=== PATIENT | female | born 1950 | race Caucasian/White ===

== ENCOUNTER → 2016-10-17 | Outpatient (CLI) | payer MEDICARE, OTHER ==
[~2016-10-17] MED LIST: ARIMIDEX1 MG PO; ASPIRIN 32325 MG/TAB PO; ASPIRIN 81M81 MG/TA2 PO; B COMPLEX #11 TA1 PO; CALCIUM 600600 M2 PO; CEPHALEXIN500 M1 PO; DEMEROL 50M50 MG/TAB PO; EPA FISH OIL1 SGL PO; GLUCOPHAGE1000 MG PO; GLUCOPHAGE500 MG/TAB PO; HCTZ12.5TAB PO; IBU400 MG PO; L-GLUTAMINE500 M5 PO; MOBIC15 MG PO; MULTI VITAMINS1 TAB PO; NATURAL IRON65 MG PO; NEURONTIN100 MG/CAP PO; OSCAL 500 TAB500 MG PO; OSTEO-BI-FLEX 21 TAB PO; OYSCO 500500 M1 PO; SYNTHROID 0.0.025 MG PO; TYLENOL PM EXTR1 TA1 PO; ZESTRIL 10MG10 MG PO; ZETIA 10MG TAB10 MG PO
== END ==
LOC: COL.RAD 10:21
DX: K21.9 Gastro-esophageal reflux disease without esophagitis (principal); K44.9 Diaphragmatic hernia without obstruction or gangrene; K22.5 Diverticulum of esophagus, acquired

== ENCOUNTER 2016-10-25 08:50 | Inpatient (IN) | payer MEDICARE, OTHER ==
[~2016-10-25] VITALS: Ht 160 cm; Wt 76.4 kg
[~2016-10-25 08:50] MED LIST changes: -ARIMIDEX1 MG PO; -ASPIRIN 32325 MG/TAB PO; -B COMPLEX #11 TA1 PO; -L-GLUTAMINE500 M5 PO; -NATURAL IRON65 MG PO; -NEURONTIN100 MG/CAP PO; -OSCAL 500 TAB500 MG PO
[2016-10-30] VITALS (10 sets, daily range): BP systolic 107–126; BP diastolic 50–63; PULSE 87–101; TEMP 98.2
[2016-10-30 13:07] LABS: HEMATOCRIT 29.3 % (37.0-47.0); HEMOGLOBIN 8.6 g/dl (12.5-16.0)
[2016-10-30] MEDS ORDERED: OSCAL 500 TAB500 MG PO (13:51)
[2016-10-30] MEDS ORDERED: ASPIRIN 32325 MG/TAB PO (13:55)
[2016-10-30] MEDS ORDERED: NEURONTIN100 MG/CAP PO ×2 (13:56)
[2016-10-30] MEDS ORDERED: B COMPLEX #11 TA1 PO (13:57)
[2016-10-30] MEDS ORDERED: ARIMIDEX1 MG PO (13:58)
[2016-10-30] MEDS ORDERED: L-GLUTAMINE500 M5 PO (14:00)
[2016-10-30] MEDS ORDERED: NATURAL IRON65 MG PO (14:01)
[2016-10-31] VITALS (11 sets, daily range): BP systolic 90–123; BP diastolic 46–67; PULSE 79–102; TEMP 97.3–98.6
[2016-10-31 06:21] LABS: HEMATOCRIT 23.1 % (37.0-47.0); HEMOGLOBIN 6.8 g/dl (12.5-16.0)
[2016-10-31 06:27] LABS: CALCIUM 9.3 mg/dL (8.4-10.2); CREATININE, serum 0.81 mg/dL (0.52-1.25)
[2016-10-31 15:12] LABS: HEMATOCRIT 30.2 % (37.0-47.0); HEMOGLOBIN 9.5 g/dl (12.5-16.0)
== END 2016-10-31 18:56 | disposition home or self-care (01) | DRG 328 ==
LOC: SURG 10-30 12:00 → SDCO 10-30 12:00 → EDSTATUS 10-30 12:00 → SURG 10-30 12:09 → INPTSU 10-30 12:09 → SDCO 10-30 12:30 → SURG 10-30 16:03
PROVIDERS: Surgery
PROC: 0DV44ZZ Restriction of Esophagogastric Junction, Percutaneous Endoscopic Approach (ICD-10-PCS; 2016-10-30)
PROC: 8E0W4CZ Robotic Assisted Procedure of Trunk Region, Percutaneous Endoscopic Approach (ICD-10-PCS; 2016-10-30)
PROC: 0BUS4JZ (ICD-10-PCS; principal; 2016-10-30 14:30)
DX: K44.9 Diaphragmatic hernia without obstruction or gangrene (principal); K21.9 Gastro-esophageal reflux disease without esophagitis; I10 Essential (primary) hypertension; E11.9 Type 2 diabetes mellitus without complications; Z85.3 Personal history of malignant neoplasm of breast
CPT/HCPCS: A9284; C1713; C1781; J0330; J0690; J1100; J1885; J1940; J2250; J2405; J2704; J2710; J2765; J3010; J7030; P9016

== ENCOUNTER → 2016-10-25 | Outpatient (CLI) | payer MEDICARE, OTHER ==
[2016-10-25 15:34] LABS: MEAN CELL VOLUME 77 fl (80.0-100.0); MEAN CORPUSCULAR HGB CONC 30 g/dl (33.0-37.0); MEAN PLATELET VOLUME 8.9 fl (7.4-10.4); PLATELET COUNT 420 K/mm3 (130-400); RED BLOOD COUNT 3.64 M/mm3 (4.10-5.30); REDCELL DISTRIBUTION WIDTH-CV 17.5 % (11.5-14.5); WHITE BLOOD COUNT 8.6 K/mm3 (4.8-10.8)
[2016-10-25 15:41] LABS: HEMATOCRIT 28.1 % (37.0-47.0); HEMOGLOBIN 8.3 g/dl (12.5-16.0); MEAN CORPUSCULAR HEMOGLOBIN 23 pg (27.0-31.0)
== END ==
LOC: COL.CARD 14:10
PROVIDERS: Surgery
DX: Z01.818 Encounter for other preprocedural examination (principal)

== ENCOUNTER 2016-12-21 14:27 | Inpatient (IN) | payer MEDICARE, OTHER ==
[~2016-12-21] VITALS: Ht 160 cm; Wt 79.4 kg
[~2016-12-21 14:27] MED LIST changes: +ARIMIDEX1 MG PO; +ASPIRIN 32325 MG/TAB PO; +B COMPLEX #11 TA1 PO; +L-GLUTAMINE500 M5 PO; +NATURAL IRON65 MG PO; +NEURONTIN100 MG/CAP PO; +OSCAL 500 TAB500 MG PO
[2016-12-21 15:53] LABS: BASO % 0.3 % (0.0-2.0); EOS # 0.3 (0.0-0.7); GRAN # 4.1 (1.4-6.5); GRAN % 51.9 % (42.2-75.2); LYMPH # 2.8 (1.2-3.4); LYMPH % 35.2 % (20.0-51.0); MEAN CELL VOLUME 86 fl (80.0-100.0); MEAN CORPUSCULAR HGB CONC 32 g/dl (33.0-37.0); MEAN PLATELET VOLUME 9.6 fl (7.4-10.4); MONO # 0.7 (0.1-0.6); MONO % 8.3 % (1.7-9.3); PLATELET COUNT 283 K/mm3 (130-400); RED BLOOD COUNT 4.15 M/mm3 (4.10-5.30); REDCELL DISTRIBUTION WIDTH-CV 21.8 % (11.5-14.5); WHITE BLOOD COUNT 7.8 K/mm3 (4.8-10.8)
[2016-12-21 15:54] LABS: HEMATOCRIT 35.6 % (37.0-47.0); HEMOGLOBIN 11.5 g/dl (12.5-16.0); MEAN CORPUSCULAR HEMOGLOBIN 28 pg (27.0-31.0)
[2016-12-21 16:03] LABS: CALCIUM 9.5 mg/dL (8.4-10.2); CREATININE, serum 0.76 mg/dL (0.52-1.25); POTASSIUM 4.1 mmol/L (3.4-5.0)
[2016-12-21 17:20] VITALS: BP 127/56; PULSE 71; TEMP 98.5
[2016-12-21 17:56] LABS: PROTHROMBIN TIME 11.3 SECONDS (9.7-12.8)
[2016-12-21 18:22] LABS: ADJUSTED CALCIUM 9.4 mg/dL (8.4-10.2); ALBUMIN 4.1 gm/dL (3.5-5.0); BILIRUBIN,TOTAL 0.3 mg/dL (0.0-1.0)
[2016-12-21 18:45] LABS: PH 6 (5-8); SQUAMOUS EPITHELIAL None Seen /hpf; URINE APPEARANCE Hazy; URINE BACTERIA None Seen /hpf; URINE BILIRUBIN Negative (NEGATIVE); URINE BLOOD Negative (NEGATIVE); URINE COLOR Yellow; URINE GLUCOSE Negative (NEGATIVE); URINE KETONE Negative (NEGATIVE); URINE RBC 0-2 /hpf; URINE UROBILINOGEN Negative (NEGATIVE)
[2016-12-21 19:00] VITALS: BP 117/55; PULSE 74; TEMP 98
[2016-12-21 19:40] VITALS: BP 117/55; PULSE 74; TEMP 98
[2016-12-22 02:42] VITALS: BP 106/49; PULSE 63; TEMP 97.4
[2016-12-22 06:25] VITALS: BP 102/62; PULSE 81; TEMP 98.8
[2016-12-22 10:08] VITALS: BP 122/53; PULSE 73; TEMP 98.4
[2016-12-22 13:25] VITALS: BP 118/60; PULSE 75; TEMP 97.7
[2016-12-22 16:34] VITALS: BP 126/56; PULSE 78; TEMP 98.9
[2016-12-22 22:22] VITALS: BP 115/55; PULSE 73; TEMP 98.4
[2016-12-23] VITALS (11 sets, daily range): BP systolic 99–134; BP diastolic 46–69; PULSE 63–80; TEMP 97.5–99.2
[2016-12-24] VITALS (7 sets, daily range): BP systolic 92–1115; BP diastolic 42–65; PULSE 56–82; TEMP 97.6–98.6
[2016-12-24 07:43] LABS: BASO % 0.1 % (0.0-2.0); GRAN # 7.5 (1.4-6.5); LYMPH # 1.2 (1.2-3.4); LYMPH % 12.9 % (20.0-51.0); MEAN CELL VOLUME 87 fl (80.0-100.0); MEAN CORPUSCULAR HGB CONC 32 g/dl (33.0-37.0); MEAN PLATELET VOLUME 10.1 fl (7.4-10.4); MONO # 0.3 (0.1-0.6); MONO % 3.8 % (1.7-9.3); PLATELET COUNT 249 K/mm3 (130-400); RED BLOOD COUNT 3.67 M/mm3 (4.10-5.30); REDCELL DISTRIBUTION WIDTH-CV 21.2 % (11.5-14.5)
[2016-12-24 07:44] LABS: HEMATOCRIT 31.9 % (37.0-47.0); HEMOGLOBIN 10.2 g/dl (12.5-16.0); MEAN CORPUSCULAR HEMOGLOBIN 28 pg (27.0-31.0)
[2016-12-24 07:55] LABS: CALCIUM 8.9 mg/dL (8.4-10.2); CREATININE, serum 0.66 mg/dL (0.52-1.25); POTASSIUM 4.3 mmol/L (3.4-5.0)
[2016-12-25] VITALS (7 sets, daily range): BP systolic 105–123; BP diastolic 44–58; PULSE 81–103; TEMP 98.1–99.3
[2016-12-26 05:03] VITALS: BP 118/53; PULSE 80; TEMP 98.1
[2016-12-26 10:25] VITALS: BP 123/55; PULSE 105; TEMP 98.4
[2016-12-26 14:23] VITALS: BP 119/48; PULSE 84; TEMP 98.2
[2016-12-26] MEDS ORDERED: CEPHALEXIN500 M1 PO (14:40)
[2016-12-26] MEDS ORDERED: FLEXERIL 1010 MG/TAB PO (14:40)
== END 2016-12-26 16:45 | disposition home or self-care (01) | DRG 481 ==
LOC: COL.ER 14:27 → SURG 16:41
PROVIDERS: Emergency Medicine; Family Medicine; Nurse Practitioner Family; Orthopaedic Surgery
PROC: 0QS604Z Reposition Right Upper Femur with Internal Fixation Device, Open Approach (ICD-10-PCS; principal; 2016-12-23 17:00)
DX: S72.111A Displaced fracture of greater trochanter of right femur, initial encounter for closed fracture (principal); M97.01XA Periprosthetic fracture around internal prosthetic right hip joint, initial encounter; N39.0 Urinary tract infection, site not specified; W01.0XXA Fall on same level from slipping, tripping and stumbling without subsequent striking against object, initial encounter; I10 Essential (primary) hypertension; E11.9 Type 2 diabetes mellitus without complications; Z85.3 Personal history of malignant neoplasm of breast; B96.20 Unspecified Escherichia coli [E. coli] as the cause of diseases classified elsewhere
CPT/HCPCS: 99222-AI; 99232-AI; 99233-AI; 99238; A9284; J0690; J0696; J1100; J1644; J1650; J2175; J2250; J2370; J2405; J2704; J3010; J7030; J7042; J7050; J7120

== ENCOUNTER → 2018-10-26 | Outpatient (CLI) | payer MEDICARE, OTHER ==
[~2018-10-26] MED LIST changes: +ASPIRIN E.C. 8181 MG PO; +EFFIENT5 MG PO; +FLEXERIL 1010 MG/TAB PO; +FLONASE NASAL S16 GM NS; +MOBIC 7.5MG7.5 MG PO; +PROTONIX 40MG T40 MG PO; +TESSALON P100 MG/CAP PO; +ZITHROMAX 250M250 MG PO
== END ==
LOC: COL.VAS 13:36
DX: Z01.810 Encounter for preprocedural cardiovascular examination (principal); I35.8 Other nonrheumatic aortic valve disorders; R00.0 Tachycardia, unspecified

== ENCOUNTER → 2018-11-02 | Outpatient (CLI) | payer MEDICARE, OTHER ==
[2018-11-02 08:44] LABS: MUCOUS Present /lpf; PH 5 (5-8); URINE APPEARANCE Hazy; URINE BACTERIA None Seen /hpf; URINE BILIRUBIN Negative (NEGATIVE); URINE BLOOD Negative (NEGATIVE); URINE COLOR Yellow; URINE GLUCOSE Negative (NEGATIVE); URINE KETONE Trace (NEGATIVE); URINE LEUKOCYTE ESTERASE 2+ (NEGATIVE); URINE NITRATE Negative (NEGATIVE); URINE PROTEIN(semi-quant) Negative (NEGATIVE); URINE UROBILINOGEN Negative (NEGATIVE); URINE WBC >50 /hpf
[2018-11-02 09:03] LABS: COLLECTION METHOD CLEAN CATCH
[2018-11-02 09:08] LABS: INR 0.9 (0.8-3.0); PROTHROMBIN TIME 10.4 SECONDS (9.7-12.8)
== END ==
LOC: COL.LAB 07:57
PROVIDERS: Orthopaedic Surgery
DX: Z01.812 Encounter for preprocedural laboratory examination (principal)

== ENCOUNTER → 2020-05-01 | Outpatient (CLI) | payer MEDICARE, OTHER | LOC: COL.RAD 10:33 | DX: Z01.812 Encounter for preprocedural laboratory examination (principal); I72.0 Aneurysm of carotid artery | CPT/HCPCS: Q9967 ==

== ENCOUNTER 2020-09-20 10:14 | Emergency (ER) | payer MEDICARE, OTHER ==
[~2020-09-20] VITALS: Ht 162.6 cm; Wt 75.0 kg
[~2020-09-20 10:14] MED LIST changes: +DUO-KAPS1 CAP PO; -MOBIC 7.5MG7.5 MG PO; -MULTI VITAMINS1 TAB PO
[2020-09-20 10:19] VITALS: TEMP 97.7
[2020-09-20 11:08] LABS: BASO % 0.1 % (0.0-2.0); EOS % 0.2 % (0-4.0); GRAN # 4.8 (1.4-6.5); GRAN % 56.8 % (42.2-75.2); HEMOGLOBIN 10.6 g/dl (12.5-16.0); LYMPH # 3.2 (1.2-3.4); LYMPH % 37.6 % (20.0-51.0); MEAN CELL VOLUME 86 fl (80.0-100.0); MEAN CORPUSCULAR HEMOGLOBIN 27 pg (27.0-31.0); MEAN CORPUSCULAR HGB CONC 31 g/dl (33.0-37.0); MEAN PLATELET VOLUME 9.1 fl (7.4-10.4); MONO # 0.4 (0.1-0.6); MONO % 5.1 % (1.7-9.3); PLATELET COUNT 382 K/mm3 (130-400); RED BLOOD COUNT 3.96 M/mm3 (4.10-5.30)
[2020-09-20 11:12] LABS: HEMATOCRIT 33.9 % (37.0-47.0)
[2020-09-20 11:16] LABS: ALANINE AMINOTRANSFERASE 19 U/L (4-34); ALBUMIN 4.7 gm/dL (3.5-5.0); ALKALINE PHOSPHATASE 75 U/L (50-136); ANION GAP 12 mmol/L (7-16); AST,SGOT 30 U/L (15-37); BILIRUBIN,TOTAL 0.5 mg/dL (0.0-1.0); BLOOD UREA NITROGEN 8 mg/dL (7-17); CALCIUM 9.1 mg/dL (8.4-10.2); CARBON DIOXIDE 19 mmol/L (22-30); CHLORIDE 105 mmol/L (98-107); CREATININE, serum 0.58 (0.52-1.25); GLUCOSE 150 mg/dL (74-106); LIPASE 127 U/L (23-300); POTASSIUM 3.7 mmol/L (3.4-5.0); SODIUM 136 mmol/L (137-145); TOTAL PROTEIN 7.8 gm/dL (6.4-8.2)
[2020-09-20 11:18] LABS: C-REACTIVE PROTEIN < 0.5 mg/dL (0.0-0.9)
[2020-09-20 11:25] LABS: COLLECTION METHOD CLEAN CATCH
[2020-09-20 11:35] LABS: PH 6 (5-8); SQUAMOUS EPITHELIAL None Seen /hpf; URINE APPEARANCE Cloudy; URINE BACTERIA Many /hpf; URINE BILIRUBIN Negative (NEGATIVE); URINE BLOOD Negative (NEGATIVE); URINE COLOR Yellow; URINE GLUCOSE Negative (NEGATIVE); URINE KETONE 2+ (NEGATIVE); URINE LEUKOCYTE ESTERASE 3+ (NEGATIVE); URINE NITRATE Positive (NEGATIVE); URINE PROTEIN(semi-quant) Negative (NEGATIVE); URINE UROBILINOGEN Negative (NEGATIVE)
[2020-09-20 12:40] LABS: HEMATOCRIT 31.5 % (37.0-47.0); HEMOGLOBIN 9.7 g/dl (12.5-16.0)
[2020-09-20 12:45] VITALS: BP 119/54; PULSE 81
[2020-09-20] MEDS ORDERED: OMNICEF 300MG300 MG PO (13:36)
== END 2020-09-20 13:55 | disposition home or self-care (01) ==
LOC: COL.ER 10:14
PROVIDERS: Family Medicine
DX: N39.0 Urinary tract infection, site not specified (principal); E86.0 Dehydration; Z88.2 Allergy status to sulfonamides; J44.9 Chronic obstructive pulmonary disease, unspecified; I48.91 Unspecified atrial fibrillation; Z79.2 Long term (current) use of antibiotics
CPT/HCPCS: J1644; J2405; J7030; J7120

== ENCOUNTER 2020-12-07 10:33 | Day surgery (SDC) | payer MEDICARE, OTHER ==
[2020-12-07] VITALS (9 sets, daily range): BP systolic 118–158; BP diastolic 56–87; PULSE 54–68; TEMP 98.6
[~2020-12-07] VITALS: Ht 162.7 cm; Wt 72.2 kg
[~2020-12-07 10:33] MED LIST changes: +OMNICEF 300MG300 MG PO
[2020-12-07] MEDS ORDERED: TOPROL XL 25MG25 MG PO (11:29)
[2020-12-07] MEDS ORDERED: AMOXICILLIN 50500 MG PO (11:30)
[2020-12-07] MEDS ORDERED: ARIMIDEX1 MG PO (11:30)
[2020-12-07 11:31] LABS: HEMATOCRIT 31.3 % (37.0-47.0); HEMOGLOBIN 9.9 g/dl (12.5-16.0); MEAN CELL VOLUME 86 fl (80.0-100.0); MEAN CORPUSCULAR HEMOGLOBIN 27 pg (27.0-31.0); MEAN CORPUSCULAR HGB CONC 32 g/dl (33.0-37.0); MEAN PLATELET VOLUME 9.3 fl (7.4-10.4); PLATELET COUNT 318 K/mm3 (130-400); RED BLOOD COUNT 3.65 M/mm3 (4.10-5.30); REDCELL DISTRIBUTION WIDTH-CV 17.4 % (11.5-14.5)
[2020-12-07] MEDS ORDERED: ASPIRIN 32325 MG/TAB PO (11:31)
[2020-12-07] MEDS ORDERED: TYLENOL PM EXTR1 TA1 PO (11:32)
[2020-12-07] MEDS ORDERED: EPA FISH OIL1 SGL PO (11:33)
[2020-12-07] MEDS ORDERED: PRINIVIL10 MG PO (11:35)
[2020-12-07] MEDS ORDERED: K-DUR 10 MEQ T10 MEQ PO (11:36)
[2020-12-07] MEDS ORDERED: VITAMIN B COMPL1 SGL PO (11:37)
[2020-12-07] MEDS ORDERED: MOVE FREE JOIN1 EACH PO (11:37)
[2020-12-07 11:42] LABS: ALBUMIN 3.9 gm/dL (3.5-5.0); BILIRUBIN,TOTAL 0.1 mg/dL (0.0-1.0); CREATININE, serum 0.67 (0.52-1.25); MAGNESIUM 1.6 mg/dL (1.6-2.3); POTASSIUM 4.1 mmol/L (3.4-5.0); TOTAL PROTEIN 6.5 gm/dL (6.4-8.2)
[2020-12-07 11:53] LABS: INR 1.1 (0.8-3.0); PROTHROMBIN TIME 11.9 SECONDS (9.7-12.8)
--- NOTE | 2020-12-07 14:09 | NUR ---
SEE MERGE FOR ALL MEDICATION ADMINISTRATION TIMES, INTRA AND POST SEDATION ASSESSMENTS
--- NOTE | 2020-12-07 15:15 | NUR ---
Pt drifing off to sleep with sats dropping as low as 87%. Oxygen applied at 2L/min and sats improve. Pt wakes easily to name, she states she typically takes a while to wake up following sedation. While awake sats are in mid 90s on room air.
--- NOTE | 2020-12-07 17:15 | NUR ---
report from Sukh DELGADO, released 2cc of air from TR band, pt has no c/o, uses phone, released 2cc x2, then band removed at 1730 with no bleeding or swelling, bandaid put on site. port flushed per protocol and removed with bandaid on site
--- NOTE | 2020-12-07 18:00 | NUR ---
pt up in room dressed, waits for ride, up to b/r, discharged via w/c to car with
== END 2020-12-07 18:00 | disposition home health service (06) ==
LOC: COL.CAR 10:33
PROVIDERS: Internal Medicine Cardiovascular Disease
DX: R06.02 Shortness of breath (principal); R94.39 Abnormal result of other cardiovascular function study; I10 Essential (primary) hypertension; E78.00 Pure hypercholesterolemia, unspecified; I72.0 Aneurysm of carotid artery; G62.0 Drug-induced polyneuropathy; K21.9 Gastro-esophageal reflux disease without esophagitis; E03.9 Hypothyroidism, unspecified; K58.9 Irritable bowel syndrome, unspecified; Z79.82 Long term (current) use of aspirin; Z79.899 Other long term (current) drug therapy; Z79.84 Long term (current) use of oral hypoglycemic drugs
CPT/HCPCS: C1769; J1644; J2250; J3010

== ENCOUNTER 2021-03-13 20:24 | Inpatient (IN) | payer MEDICARE, OTHER ==
[~2021-03-13] VITALS: Ht 157.5 cm; Wt 81.0 kg
[~2021-03-13 20:24] MED LIST changes: +AMOXICILLIN 50500 MG PO; +K-DUR 10 MEQ T10 MEQ PO; +MOVE FREE JOIN1 EACH PO; +PRINIVIL10 MG PO; +TOPROL XL 25MG25 MG PO; +VITAMIN B COMPL1 SGL PO
[2021-03-13 21:28] LABS: BASO % 0.2 % (0.0-2.0); EOS % 0.3 % (0-4.0); GRAN # 12.7 K/mm3 (1.4-6.5); GRAN % 83.3 % (42.2-75.2); HEMATOCRIT 34.6 % (37.0-47.0); HEMOGLOBIN 10.5 g/dl (12.5-16.0); LYMPH # 1.8 K/mm3 (1.2-3.4); LYMPH % 12.1 % (20.0-51.0); MEAN CELL VOLUME 92 fl (80.0-100.0); MEAN CORPUSCULAR HEMOGLOBIN 28 pg (27.0-31.0); MEAN CORPUSCULAR HGB CONC 30 g/dl (33.0-37.0); MEAN PLATELET VOLUME 9.6 fl (7.4-10.4); MONO # 0.5 K/mm3 (0.1-0.6); MONO % 3.6 % (1.7-9.3); PLATELET COUNT 306 K/mm3 (130-400); RED BLOOD COUNT 3.75 M/mm3 (4.10-5.30); REDCELL DISTRIBUTION WIDTH-CV 18.8 % (11.5-14.5)
[2021-03-13 21:58] LABS: ALBUMIN 4.1 gm/dL (3.4-4.8); BILIRUBIN,TOTAL 0.5 mg/dL (0.2-1.2); CALCIUM 8.9 mg/dL (8.4-10.2); CREATININE, serum 0.79 mg/dL (0.57-1.11); POTASSIUM 3.5 mmol/L (3.5-4.5); TOTAL PROTEIN 6.8 gm/dL (6.2-8.1)
[2021-03-13 23:20] LABS: COLLECTION METHOD CLEAN CATCH
[2021-03-13 23:39] LABS: MUCOUS Present (NOT PRESENT); PH 5 (5-8); SQUAMOUS EPITHELIAL 0-2 /hpf (0-10); URINE APPEARANCE Clear (CLEAR/HAZY); URINE BACTERIA None Seen (NONE SEEN); URINE BILIRUBIN Negative (NEGATIVE); URINE BLOOD Negative (NEGATIVE); URINE COLOR Yellow (YELLOW); URINE GLUCOSE Negative (NEGATIVE); URINE KETONE 1+ (NEGATIVE); URINE LEUKOCYTE ESTERASE 3+ (NEGATIVE); URINE NITRATE Negative (NEGATIVE); URINE PROTEIN(semi-quant) Negative (NEGATIVE); URINE UROBILINOGEN Negative (NEGATIVE)
[2021-03-14] VITALS (10 sets, daily range): BP systolic 78–119; BP diastolic 33–99; PULSE 57–106; TEMP 98–99.5
[2021-03-14] MEDS ORDERED: PROTONIX 40MG T40 MG PO (00:40)
[2021-03-14] MEDS ORDERED: NATURAL IRON65 MG PO (00:42)
[2021-03-14] MEDS ORDERED: VITAMIN C500 MG PO (00:43)
[2021-03-14] MEDS ORDERED: CALCIUM CARBON500 M1 PO (00:50)
--- NOTE | 2021-03-14 01:07 | NUR ---
PT ARRIVED TO ROOM VIA ER CART @ 0035. PT WAS ABLE TO MOVE SELF FROM CART TO BED WITH MINIMAL ASSISTANCE. MED REC IS COMPLETED. Juan Manuel ALEX IN ROOM ASSESSING PT @ THIS TIME.
--- NOTE | 2021-03-14 02:07 | NUR ---
IMPLANTED PORT ON PT'S RIGHT CHEST HAD BEEN ACCESSED IN ED.
--- NOTE | 2021-03-14 03:11 | NUR ---
PT REPORTS RETURNING PAIN IN HER RIGHT ABDOMEN. PT STATES THAT SHE REALLY FEELS LIKE SHE NEEDS TO URINATE BUT CANNOT GO. [facility] IS IN PLACE. PT DENIES OTHER NEEDS, IS PLEASANT ET TALKATIVE. RESPIRATIONS UNLABORED ON RA. IVF INFUSING THROUGH PORTACATH. CALL LIGHT WITHIN REACH.
--- NOTE | 2021-03-14 04:35 | NUR ---
PCT INGRID NOTIFIES THIS NURSE OF PT'S LOW BLOOD PRESSURES. PT'S BP IN RIGHT UPPER ARM IS 79/38 WHEN RE-TAKEN BY THIS NURSE. PT IS ASYMPTOMATIC, DENIES DIZZINESS OR PAIN @ THIS TIME. PT IS SITTING UP IN BED ET TALKATIVE. Juan Manuel ALEX NOTIFIED. NEW ORDERS RECEIVED TO GIVE FLUID BOLUS ET THEN TO RE-CHECK BP. IVF INFUSING.
--- NOTE | 2021-03-14 05:59 | NUR ---
Juan Manuel ALEX NOTIFIED OF PT'S CONDITION ET BLOOD PRESSURE. PT APPEARS PALE ET IS DROWSY, CONTINUES TO DENY SYMPTOMS. IVF INFUSING. Juan Manuel ALEX TALKS TO PT ABOUT DECISION TO TRANSFER TO ICU, PT IS AGREEABLE. REPORT GIVEN TO JARAD DELGADO.
--- NOTE | 2021-03-14 06:25 | NUR ---
Arrived to ICU 4 at this. Assessment complete and charted.
--- NOTE | 2021-03-14 07:00 | NUR ---
PT IS AXOX4. PT STARTED ON LEVO. WILL CONTINUE TO MONITOR.
[2021-03-14 07:03] LABS: MEAN CELL VOLUME 92 fl (80.0-100.0); MEAN CORPUSCULAR HGB CONC 31 g/dl (33.0-37.0); MEAN PLATELET VOLUME 10.3 fl (7.4-10.4); PLATELET COUNT 223 K/mm3 (130-400); RED BLOOD COUNT 3.08 M/mm3 (4.10-5.30); REDCELL DISTRIBUTION WIDTH-CV 19.4 % (11.5-14.5)
[2021-03-14 07:16] LABS: CALCIUM 8.3 mg/dL (8.4-10.2); CREATININE, serum 1.03 mg/dL (0.57-1.11); POTASSIUM 3.6 mmol/L (3.5-4.5)
--- NOTE | 2021-03-14 07:18 | NUR ---
Report given to Tomeka DELGADO
[2021-03-14 07:27] LABS: HEMATOCRIT 28.3 % (37.0-47.0); HEMOGLOBIN 8.7 g/dl (12.5-16.0); MEAN CORPUSCULAR HEMOGLOBIN 28 pg (27.0-31.0)
[2021-03-14 08:26] LABS: ANISOCYTOSIS 2+; BAND 14 % (0-10); HYPOCHROMIA 2+; LYMPHOCYTE 4 % (20.0-51.0); NEUTROPHILS 78 % (42.0-75.2); PLATELET ESTIMATE NORMAL (NORMAL)
--- NOTE | 2021-03-14 09:00 | NUR ---
PT TAKEN TO OR FOR CYSTOSCOPY. NS AND LEVO RUNNING. ANESTHESIA BEDSIDE
--- NOTE | 2021-03-14 10:24 | NUR ---
Pt's med review shows use of ARIMIDEX daily. This chemotherapy drug requires use of DOUBLE GLOVES AND GOWN IS RISK OF SPLASHING WHEN HAVING CONTACT WITH [facility] FOR 10 DAYS POST EACH ADMINISTRATION.
--- NOTE | 2021-03-14 19:50 | NUR ---
Assessment complete and charted. Patient denies pain at this time. Denies needs. Gilbert in place. Levophed infusing. IV fluids decreased per orders. Call light in reach.
--- NOTE | 2021-03-14 20:06 | NUR ---
fruit i farmworker met with patient and spouse to discuss discharge planning. 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 Patient states she is independent with activities of daily living and plans to return home upon discharge. Patient states she has a ramp and all needed durable medical equipment at home.
[2021-03-15] VITALS (160 sets, daily range): BP systolic 90–130; BP diastolic 42–61; PULSE 57–84; TEMP 97.5–99; O2SAT 79–98
[2021-03-15 04:44] LABS: BASO % 0.2 % (0.0-2.0); EOS # 0.1 K/mm3 (0.0-0.7); EOS % 0.3 % (0-4.0); GRAN # 14.3 K/mm3 (1.4-6.5); GRAN % 79.8 % (42.2-75.2); LYMPH # 2.4 K/mm3 (1.2-3.4); LYMPH % 13.2 % (20.0-51.0); MEAN CELL VOLUME 93 fl (80.0-100.0); MEAN CORPUSCULAR HGB CONC 30 g/dl (33.0-37.0); MEAN PLATELET VOLUME 9.9 fl (7.4-10.4); MONO % 5.5 % (1.7-9.3); PLATELET COUNT 225 K/mm3 (130-400); RED BLOOD COUNT 3.21 M/mm3 (4.10-5.30); REDCELL DISTRIBUTION WIDTH-CV 19.9 % (11.5-14.5)
[2021-03-15 04:56] LABS: HEMATOCRIT 29.9 % (37.0-47.0); HEMOGLOBIN 9.1 g/dl (12.5-16.0); MEAN CORPUSCULAR HEMOGLOBIN 28 pg (27.0-31.0)
[2021-03-15 04:57] LABS: ALBUMIN 2.8 gm/dL (3.4-4.8); CALCIUM 7.4 mg/dL (8.4-10.2); CREATININE, serum 0.75 mg/dL (0.57-1.11); MAGNESIUM 1.5 mg/dL (1.6-2.6); PHOSPHOROUS 2.1 mg/dL (2.3-4.7); POTASSIUM 3.8 mmol/L (3.5-4.5)
--- NOTE | 2021-03-15 06:13 | NUR ---
Patient remained on levophed throughout the night. Took tylenol and toradol for pain control in ABD/ribs. Otherwise uneventful night. Resting in bed this AM. Call light in reach.
--- NOTE | 2021-03-15 07:00 | NUR ---
PT RESTING IN BED. VSS. WILL CONITNUE TO [facility].
--- NOTE | 2021-03-15 07:03 | NUR ---
Report given to DANNY Eckert
--- NOTE | 2021-03-15 12:12 | NUR ---
CALLED REGARDING CONSULT AND UPDATED ON PATIENT.
--- NOTE | 2021-03-15 19:56 | NUR ---
Report given to DANNY Ferreira
--- NOTE | 2021-03-15 20:22 | NUR ---
Patient transferred to [facility]
[2021-03-16] VITALS (7 sets, daily range): BP systolic 102–131; BP diastolic 46–53; PULSE 63–79; TEMP 97.9–98.7
--- NOTE | 2021-03-16 06:24 | NUR ---
PT RESTING QUIETLY IN BED, STATES THAT SHE HAS ONLY DOZED ON ET OFF BUT NOT SLEPT MUCH. DENIES PAIN @ THIS TIME. PT HAD HEADACHE EARLIER IN NIGHT THAT SHE STATED SHE BELIEVED WAS CAUSED BY SINUSES, EXACERBATED BY LIGHTS. PT HAS STOOD @ BEDSIDE MULTIPLE TIMES. ISLAS CATHETER DRAINING YELLOW CLOUDY URINE. PERIPHERAL IV IN PT'S RIGHT FOREARM APPEARS BRUISED ET RED @ SITE. IV REMOVED, CATHETER TIP INTACT. PT IS TALKITIVE, PLEASANT ET COOPERATIVE. IVF INFUSING THROUGH PORTACATH. PORTACATH FLUSHES EASILY WITH GOOD BLOOD RETURN. RESPIRATIONS UNLABORED. CALL LIGHT WITHIN REACH.
[2021-03-16 06:46] LABS: BASO % 0.1 % (0.0-2.0); EOS # 0.1 K/mm3 (0.0-0.7); EOS % 1.6 % (0-4.0); GRAN # 6.7 K/mm3 (1.4-6.5); GRAN % 74.5 % (42.2-75.2); LYMPH # 1.6 K/mm3 (1.2-3.4); LYMPH % 17.9 % (20.0-51.0); MEAN CELL VOLUME 93 fl (80.0-100.0); MEAN CORPUSCULAR HGB CONC 30 g/dl (33.0-37.0); MEAN PLATELET VOLUME 10.8 fl (7.4-10.4); MONO # 0.5 K/mm3 (0.1-0.6); MONO % 5.6 % (1.7-9.3); PLATELET COUNT 201 K/mm3 (130-400); RED BLOOD COUNT 2.98 M/mm3 (4.10-5.30); REDCELL DISTRIBUTION WIDTH-CV 20.5 % (11.5-14.5)
[2021-03-16 06:50] LABS: HEMATOCRIT 27.6 % (37.0-47.0); HEMOGLOBIN 8.4 g/dl (12.5-16.0); MEAN CORPUSCULAR HEMOGLOBIN 28 pg (27.0-31.0)
[2021-03-16 07:11] LABS: ALBUMIN 2.6 gm/dL (3.4-4.8); CALCIUM 7.6 mg/dL (8.4-10.2); CREATININE, serum 0.66 mg/dL (0.57-1.11); MAGNESIUM 1.8 mg/dL (1.6-2.6); PHOSPHOROUS 1.7 mg/dL (2.3-4.7); POTASSIUM 3.8 mmol/L (3.5-4.5)
--- NOTE | 2021-03-16 11:36 | NUR ---
Pt continues to do well. She has been up and showered. Dr Umana has been in and pt is hopeful to get to go home tomorrow morning. Some pain complaints, but reports it is tolerable. Pt is steady with stand by assist, Dr Umana okayed independent ambulation. No needs verbalized, call light within reach
[2021-03-16] MEDS ORDERED: TYLENOL 500MG500 MG PO (16:05)
[2021-03-16] MEDS ORDERED: MACRODANTIN100 PO (16:07)
--- NOTE | 2021-03-16 18:00 | NUR ---
Pt continues to do well, no real pain complaints, only states her side is tender. She continues to get up and walk in the halls independently. Voiding with no issues. Currently sitting up in the chair.
[2021-03-17 03:25] VITALS: BP 125/58; PULSE 77; TEMP 98.3
[2021-03-17 06:45] VITALS: BP 127/54; PULSE 54; TEMP 98.4
[2021-03-17 06:53] LABS: BASO % 0.2 % (0.0-2.0); EOS # 0.2 K/mm3 (0.0-0.7); EOS % 3.2 % (0-4.0); GRAN # 3.2 K/mm3 (1.4-6.5); GRAN % 52.9 % (42.2-75.2); LYMPH # 2.1 K/mm3 (1.2-3.4); LYMPH % 34.4 % (20.0-51.0); MEAN CELL VOLUME 90 fl (80.0-100.0); MEAN CORPUSCULAR HGB CONC 31 g/dl (33.0-37.0); MEAN PLATELET VOLUME 10.9 fl (7.4-10.4); MONO # 0.5 K/mm3 (0.1-0.6); PLATELET COUNT 215 K/mm3 (130-400); RED BLOOD COUNT 2.94 M/mm3 (4.10-5.30)
[2021-03-17 06:56] LABS: HEMATOCRIT 26.3 % (37.0-47.0); HEMOGLOBIN 8.2 g/dl (12.5-16.0); MEAN CORPUSCULAR HEMOGLOBIN 28 pg (27.0-31.0)
--- NOTE | 2021-03-17 07:07 | NUR ---
PT REPORTS BEST NIGHT OF SLEEP SO FAR, HOPING TO GO HOME TODAY. AM LAB DRAWN PER KERRI, PAIN TOLERABLE WITH TYLENOL. UP AD KEMAL
--- NOTE | 2021-03-17 07:20 | NUR ---
Pt. progressing w/ plan of care. This RN introduced self to patient and let her know this nurse would be caring for her today. Call light and belongings in reach.
[2021-03-17 08:11] VITALS: BP 128/55; PULSE 67; TEMP 97.6
[2021-03-17 08:50] LABS: ALBUMIN 2.7 gm/dL (3.4-4.8); CREATININE, serum 0.66 mg/dL (0.57-1.11); MAGNESIUM 1.8 mg/dL (1.6-2.6); PHOSPHOROUS 3.3 mg/dL (2.3-4.7); POTASSIUM 3.8 mmol/L (3.5-4.5)
--- NOTE | 2021-03-17 09:15 | NUR ---
Pt. progressing w/ plan of care. Tele orders d/c'd, tele removed from the patient. Pt. worked with physical therapy and did well. Assessment complete and AM meds given. Plan for pt. to be discharged today, Dr. Umana reports he is waiting on blood cultures before discharge. Pt. agreeable w/ plan of care. Call light and belongings in reach.
--- NOTE | 2021-03-17 11:39 | NUR ---
Initial visit; Patient a former nurse and a very interesting person. Patient spoke of her family, her health issues and thanked [facility] for offering spiritual care especially prayer and God's blessings.
[2021-03-17 12:18] VITALS: BP 150/70; PULSE 80; TEMP 98.4
--- NOTE | 2021-03-17 12:18 | NUR ---
Port to right chest has been heparinized and port removed per protocol. ABX given prior to removal per Dr. Umana order. Pt. sitting OOB in chair eating lunch now. Plan for pt.'s to pick her up and this RN to go over discharge instructions with the patient.
--- NOTE | 2021-03-17 13:00 | NUR ---
Pt. discharged home. All paperwork reviewed with the patient. Pt. left floor via wheelchair w/ SUGAR Courtney.
== END 2021-03-17 13:30 | disposition home or self-care (01) | DRG 853 ==
LOC: COL.ER 20:24 → SURG 23:07 → ICU 23:07 → SURG 03-14 05:54 → ICU 03-14 06:00 → SURG 03-15 20:22
PROVIDERS: Emergency Medicine; Internal Medicine; Student in an Organized Health Care Education/Training Program; Urology; ADMIT Internal Medicine
PROC: 0T768DZ Dilation of Right Ureter with Intraluminal Device, Via Natural or Artificial Opening Endoscopic (ICD-10-PCS; principal; 2021-03-14 10:30)
PROC: BT1D1ZZ Fluoroscopy of Right Kidney, Ureter and Bladder using Low Osmolar Contrast (ICD-10-PCS; 2021-03-14 10:30)
DX: A41.9 Sepsis, unspecified organism (principal); R65.21 Severe sepsis with septic shock; N13.6 Pyonephrosis; Z16.24 Resistance to multiple antibiotics; I10 Essential (primary) hypertension; K58.9 Irritable bowel syndrome, unspecified; E03.9 Hypothyroidism, unspecified; G89.29 Other chronic pain; M54.9 Dorsalgia, unspecified; K21.9 Gastro-esophageal reflux disease without esophagitis; E78.5 Hyperlipidemia, unspecified; E87.6 Hypokalemia; E11.42 Type 2 diabetes mellitus with diabetic polyneuropathy; Z96.643 Presence of artificial hip joint, bilateral; M16.11 Unilateral primary osteoarthritis, right hip; D50.9 Iron deficiency anemia, unspecified; B96.20 Unspecified Escherichia coli [E. coli] as the cause of diseases classified elsewhere; Z88.6 Allergy status to analgesic agent; Z88.2 Allergy status to sulfonamides; Z85.3 Personal history of malignant neoplasm of breast; Z79.84 Long term (current) use of oral hypoglycemic drugs; Z79.82 Long term (current) use of aspirin
CPT/HCPCS: 99223-AI; 99232-AI; 99239; C1769; C2617; J0692; J0696; J1644; J1885; J2175; J2250; J2370; J2405; J2704; J2765; J3010; J3475; J7030; J7040; J7050; J7060; Q9967

== ENCOUNTER 2021-04-03 12:16 | Day surgery (SDC) | payer MEDICARE, OTHER ==
[~2021-04-03] VITALS: Ht 157.5 cm; Wt 71.9 kg
[~2021-04-03 12:16] MED LIST changes: +CALCIUM CARBON500 M1 PO; +MACRODANTIN100 PO; +TYLENOL 500MG500 MG PO; +VITAMIN C500 MG PO
[2021-04-03] MEDS ORDERED: MOBIC15 MG PO (14:08)
[2021-04-03] MEDS ORDERED: OSTEO-BI-FLEX 21 TAB PO (14:09)
[2021-04-03] MEDS ORDERED: PROBIOTIC 2 BI1 EACH PO (14:09)
[2021-04-03] MEDS ORDERED: PROLIA60 MG/ML SQ (14:11)
[2021-04-03] MEDS ORDERED: ZETIA 10MG TAB10 MG PO (14:11)
[2021-04-03] MEDS ORDERED: PREVACID 30MG30 M1 PO (14:20)
[2021-04-03 16:10] VITALS: BP 149/68; PULSE 76; TEMP 97.3
--- NOTE | 2021-04-03 16:10 | NUR ---
Pt returns from PACU to [place] , alert and oriented x3, VSS, on room air. Pt needs to void, up to the bathroom and voids without difficulty. Back to the bed and dry heaves. Denies needing anything to drink at this time. Call light in reach, side rails up x2.
[2021-04-03 16:25] VITALS: BP 137/67; PULSE 82
--- NOTE | 2021-04-03 16:25 | NUR ---
Pt reports pain to abdomen, warm blanket applied. VSS. Offered her something to eat and drink and denies wanting anything. Water provided. Call light in reach.
[2021-04-03 16:40] VITALS: BP 152/69; PULSE 81
--- NOTE | 2021-04-03 16:40 | NUR ---
Pt reports she needs to void, up to the bathroom, increase in pain, able to void with urine light pink. Back to the cart and VSS. Pt dry heaves. Will given Zofran and Tylenol per orders. Call light in reach.
[2021-04-03 16:55] VITALS: BP 121/65; PULSE 70
[2021-04-03 17:10] VITALS: BP 134/69; PULSE 79
--- NOTE | 2021-04-03 17:15 | NUR ---
Pt crying in pain, reports it is going around to her right side back. 12/15. Dr. Forman notified and orders for Toradol 30 mg IV now and Levsin 0.125 mg SL now and to call in Levaquin 500 mg PO daily x3 days to start in the am. Pharmacy called and order given for Levaquin.
--- NOTE | 2021-04-03 17:30 | NUR ---
Pt provided new warm blanket to abdomen. VSS. here and to bedside. Call light in reach. Pt takes 3 bites of pudding and has been sipping on water.
[2021-04-03 17:40] VITALS: BP 128/62; PULSE 72
--- NOTE | 2021-04-03 17:50 | NUR ---
Pt up to the bathroom again and voids clear/pink urine. Reports pain is much improved /. Asks if there is something for nausea she can have at home. Voicemail left with Dr. Douglas. VSS. Awake and alert, talking with her . Call light in reach.
--- NOTE | 2021-04-03 18:00 | NUR ---
Dr. Douglas calls back and orders for Zofran 8 mg po q8H be called into pharmacy. Pt feeling much better and ready to go home. Port deaccessed per protocol. VSS. Discharge instructions provided. Pt gets dressed and uses the bathroom again and is taken out via wheelchair and left in care of her at 1826.
== END 2021-04-03 18:26 | disposition home or self-care (01) ==
LOC: SDCO 12:16
DX: N20.0 Calculus of kidney (principal); I10 Essential (primary) hypertension; E11.9 Type 2 diabetes mellitus without complications; C50.911 Malignant neoplasm of unspecified site of right female breast; E03.9 Hypothyroidism, unspecified; M19.90 Unspecified osteoarthritis, unspecified site; Z79.890 Hormone replacement therapy; Z79.811 Long term (current) use of aromatase inhibitors; Z79.899 Other long term (current) drug therapy; Z79.82 Long term (current) use of aspirin; Z79.84 Long term (current) use of oral hypoglycemic drugs; Z79.1 Long term (current) use of non-steroidal anti-inflammatories (NSAID); Z90.13 Acquired absence of bilateral breasts and nipples; Z95.5 Presence of coronary angioplasty implant and graft
CPT/HCPCS: C1769; C1894; C2617; J0690; J1100; J1644; J1885; J2405; J2704; J3010; J7030